=== PATIENT | female | born 1950 | race Caucasian/White ===

== ENCOUNTER 2017-06-08 17:41 | Emergency (ER) | payer MEDICARE ==
[~2017-06-08 17:41] MED LIST: ASPIRIN PO; CELEBREX PO; COLACE50 MG PO; EFFEXOR XR PO; LOPRESSOR PO; MEDROL PO; NORVASC10 MG PO; OXYCONTIN PO
== END 2017-06-08 19:13 | disposition home or self-care (01) ==
LOC: SED 17:41
DX: M25.562 Pain in left knee (principal); Z90.710 Acquired absence of both cervix and uterus; Z88.5 Allergy status to narcotic agent; Z79.899 Other long term (current) drug therapy
CPT/HCPCS: 99283; J1100